=== PATIENT | male | born 1990 | race Caucasian/White ===

== ENCOUNTER → 2022-01-10 | Outpatient (CLI) | payer OTHER ==
--- NOTE | 2022-01-10 13:39 | RAD ---
XR ELBOW_RIGHT History: Reason: NKI ELBOW PAIN / Spl. Instructions: / History: Technique: 2 views right elbow. Comparison: None. Findings: No dislocation. No acute fracture. No significant elbow joint effusion. Impression: 1. No acute osseous abnormality. Electronically signed by: Yfn Velasquez DO (01/10/2022 1:36 PM) [facility]
== END ==
LOC: RAD 12:43
PROVIDERS: ATTEND Nurse Practitioner
DX: M25.521 Pain in right elbow (principal)
CPT/HCPCS: 73070